=== PATIENT | male | born 1995 | race Caucasian/White ===

== ENCOUNTER 2017-09-20 16:27 | Emergency (ER) | payer BC, OTHER ==
[2017-09-20 16:45] VITALS: BP 128/74
--- NOTE | 2017-09-20 16:59 | UC ---
Dental HPI - HPI Summary HPI Summary: pt is c/o an inflamed gum to his L lower jaw for 5 days. he resumed using his retainer 1 month ago. - History of Current Complaint Chief Complaint: UCDentalProblem Stated Complaint: LEFT SIDE TOOTH COMPLAINT Time Seen by Provider: 09/20/17 16:38 Hx Obtained From: Patient Onset/Duration: Gradual Onset Pain Intensity: 5 Aggravating Factor(s): Chewing Alleviating Factor(s): Nothing - Allergies/Home Medications Allergies/Adverse Reactions: Allergies Allergy/AdvReac Type Severity Reaction Status Date / Time No Known Allergies Allergy Verified 09/20/17 16:39 Home Medications: Home Medications Albuterol HFA INHALER* [Ventolin HFA Inhaler*] 2 puff BID 09/20/17 [History Confirmed 09/20/17] Budesonide Flexhaler 90 (NF) [Pulmicort Flexhaler 90 mcg/act (NF)] 1 puff BID [History Confirmed 09/20/17] Dornase Ernie (Nf) [Pulmozyme (NF)] 1 inh DAILY 09/20/17 [History Confirmed 09/20] Pancrelipase (NF) [Creon (NF)] 1 tab TID 09/20/17 [History Confirmed 09/20/17] PMH/Surg Hx/FS Hx/Imm Hx - Additional Past Medical History Additional PMH: cystic fibrosis - Surgical History Surgical History: Yes Surgery Procedure, Year, and Place: NASAL POLYP REMOVED, 2011 - Social History Occupation: Employed Part-time, Student Lives: With Family Alcohol Use: None Substance Use Type: None Smoking Status (MU): Never Smoked Tobacco - Immunization History Vaccination Up to Date: Yes Review of Systems Constitutional: Negative Skin: Negative Eyes: Negative ENT: Negative Respiratory: Negative Cardiovascular: Negative Gastrointestinal: Negative Genitourinary: Negative Motor: Negative Neurovascular: Negative Musculoskeletal: Negative Neurological: Negative Psychological: Negative Is Patient Immunocompromised?: No All Other Systems Reviewed And Are Negative: Yes Physical Exam Triage Information Reviewed: Yes Appearance: Well-Appearing Vital Signs: Initial Vital Signs Temp 98.1 F 09/20/17 16:41 Pulse 63 09/20/17 16:41 Resp 15 09/20/17 16:41 BP 128/74 09/20/17 16:41 Pulse Ox 100 07/31/18 16:41 Vital Signs Reviewed: Yes Eyes: Positive: Conjunctiva Clear ENT: Positive: Pharynx normal, TMs normal. Negative: Nasal congestion, Nasal drainage Dental: Positive: Other: - A small area of gum has over grown the L lower wisdom tooth and is red plus inflamed. Not fluctuant.. Negative: Percussion Tenderness @, Gross Decay/Caries @ Neck: Positive: Supple, Nontender, No Lymphadenopathy Respiratory: Positive: Lungs clear, Normal breath sounds Cardiovascular: Positive: RRR, No Murmur Abdomen Description: Positive: Nontender, No Organomegaly, Soft Bowel Sounds: Positive: Present Musculoskeletal: Positive: ROM Intact Neurological: Positive: Alert Psychological: Positive: Age Appropriate Behavior Skin Exam: Normal Dental Complaint Course/Dx - Course Course Of Treatment: gum liely inflamed from over lying a chewing surface plus retainer use. given it is red and swollen, will tx with pcn plus have pt stop his retainer use and f/u with his oral surgeon. - Differential Dx/Diagnosis Provider Diagnoses: INFLAMMED GUM OVER L LOWER WISDOM TOOTH Discharge - Sign-Out/Discharge Documenting (check all that apply): Patient Departure - Discharge Plan Condition: Stable Disposition: HOME Prescriptions: Penicillin VK 500 MG TAB(NF) [Penicillin VK 500 mg Tab] 500 mg PO TID #21 tab Patient Education Materials: Gingivitis (ED) Referrals: Sofy Gonzalez [Primary Care Provider] - If Needed Additional Instructions: FOLLOW UP WITH YOUR ORAL SURGEON IN [place]. CALL IN AM FOR NEXT AVAILABLE APPOINTMENT. - Billing Disposition and Condition Condition: STABLE Disposition: Home
== END 2017-09-20 17:12 | disposition home or self-care (01) ==
LOC: UCCORT 16:27
DX: K05.10 Chronic gingivitis, plaque induced (principal)
CPT/HCPCS: 99212; G0463